=== PATIENT | female | born 2000 | race Two or more races ===

== ENCOUNTER 2024-01-06 08:33 | Outpatient (CLI) | payer OTHER ==
[~2024-01-06 08:33] MED LIST: SINGULAIR5 MG PO
== END 2024-01-06 08:46 | disposition home or self-care (01) ==
LOC: SONOGRAMA 08:33
DX: R10.9 Unspecified abdominal pain (principal); Z68.20 Body mass index [BMI] 20.0-20.9, adult

== ENCOUNTER 2024-09-24 09:46 | Outpatient (CLI) | payer OTHER | END 2024-09-24 09:49 | disposition home or self-care (01) | LOC: SONOGRAMA 09:46 | PROVIDERS: ATTEND Pathology Anatomic Pathology | DX: D34 Benign neoplasm of thyroid gland (principal); E07.89 Other specified disorders of thyroid; E04.2 Nontoxic multinodular goiter ==